=== PATIENT | male | born 1985 | race African-American/Black ===

== ENCOUNTER 2017-11-01 18:03 | Emergency (ER) | payer OTHER ==
[~2017-11-01] VITALS: Ht 185.4 cm; Wt 87.3 kg
[2017-11-01] MEDS ORDERED: MOTRIN600 MG PO (19:51)
[2017-11-01 20:40] VITALS: BP 147/99
== END 2017-11-01 20:41 | disposition home or self-care (01) ==
LOC: EME 18:03 → RME 18:03
DX: S43.402A Unspecified sprain of left shoulder joint, initial encounter (principal); M54.2 Cervicalgia; W22.8XXA Striking against or struck by other objects, initial encounter; Y93.72 Activity, wrestling
CPT/HCPCS: 70450; 72125; 73010; 73030; 99281; 99283